=== PATIENT | female | born 1940 ===

== ENCOUNTER → 2018-02-09 12:19 | Outpatient (CLI) | payer MEDICARE, OTHER, SELFPAY ==
--- NOTE | 2018-02-08 | BRBX_PTH ---
PATIENT: DE CARD LOC: [facility] U#:[id number] AGE/SX: 85/F ROOM: RE02/09/[address]: Dr. Jean-Claude Raymond MD : 1940 BED: DIS: SPEC #: [id number] RECD: 02/09/18 12:04 STATUS: YASMEEN VINH #: [id number] MIKAL: 02/08/18 00:[address]: Jean-Claude Raymond DEPT: SURGICAL PATHOLOGY RECD BY: Jean-Claude Snow Tissues: A - Breast, NOS B - Lymph node, NOS Procedures: Surgery Specimen Level IV HEADER OPERATION: Right breast ultrasound-guided biopsy PRE-OP DIAGNOSIS: Right breast tissue, right lymph node TISSUE SUBMITTED: A ? Breast tissue biopsy, B ? Lymph node biopsy ISCHEMIC TIME: <1 minute MICROSCOPIC DIAGNOSIS A. 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 9 mm B. Lymph node, core biopsy: Invasive mammary carcinoma with focal papillary features. AM:antwan 02/12/18 COMMENT A & B. ER/OK/Ajm9blo studies are being performed on sections of tumor and the results from this study will be reported separately ([id number]). B. Lymphoid tissue is not present in the biopsy. Clinical correlation is suggested. Case has been reviewed in consultation with Dr. Grace who concurs with the above diagnosis. IDC:SJ MICROSCOPIC DESCRIPTION Slides are reviewed. GROSS DESCRIPTION A - Received is one container labeled with the patient's name and not further designated. The specimen consists of a single elongated fragment of thomason-yellow soft tissue measuring 1 cm in length and 0.1 cm in average diameter. The specimen is totally submitted in one cassette. B - Received in fixative is one container labeled with the patient's name and designated #2. The specimen consists of multiple irregular fragments of thomason-yellow soft tissue that in aggregate measure 1.2 x 0.2 x 0.1 cm. The specimen is totally submitted in one cassette. / AM:antwan 02/09/18 TC:0 CPT: 86992 x2
--- NOTE | 2018-02-08 | IMM_PTH ---
PATIENT: DE CARD LOC: [facility] U#:[id number] AGE/SX: 85/F ROOM: RE02/09/[address]: Dr. Jean-Claude Raymond MD : 1940 BED: DIS: SPEC #: [id number] RECD: 02/12/18 12:46 STATUS: YASMEEN REThanh #: [id number] MIKAL: 02/08/18 00:[address]: Jean-Claude Raymond DEPT: IMMUNOHISTOCHEMISTRY RECD BY: Lenka Barron Tissues: A - Right breast, NOS B - Axillary lymph node, NOS Procedures: CALPONIN-1 (add) CK19 (add) CK5-6 (add) CK8 (add) E-CAD (add) HER2 YOCASTA (add) KI-67 (add) MAMM (add) P53 (add) KS (add) GATA3 (add) P40 (add) ER (initial) PHYSICIAN & INSTITUTION [place] [id number] SPECIMEN INFORMATION: Tissue Source: A ? Right breast biopsy, B ? Lymph node biopsy Clinical Info: Right breast tissue, right lymph node Specimen Number: [id number] A & B CPT code: 39044 x2, 33955 x8, 09443 x5 METHODOLOGY: Deparaffinized sections of prefer/formalin-fixed tissue or PAP/DQ stained slides are incubated with monoclonal/polyclonal antibodies/oligonucleotide probes. Localization is made via biotin free immunoperoxidase method. Appropriate controls are performed and reacted as expected. Results on target cell population are indicated in the following table: RESULTS: ANTIBODY / CLONE RESULT Block A P53 (DO-7) negative Ki-67 (30-9) positive, low CK8 (89sylyN41) positive CK5-6 (D5 & 1684) negative Calponin-1 (SC670D) negative P40 (BC28) negative E-Cad (ECH-6) positive MORPHOMETRIC ANALYSIS ER (clone 6F11) >95% KS (clone 16/1E2) >95% Her-2Neu (clone CB11) 0-1+ Block B ER (6F11) positive KS (1E2) positive GATA3 (L50-823) positive CK19 (A53-B/A2.26) positive Mammaglobin (31A5) positive The prognostic test for HER2 is performed on formalin-fixed paraffin embedded tissue. A 3+ (positive) staining pattern is defined as intense, homogeneous, complete, circumferential membranous staining in >10% of contiguous tumor cells. A similar weak (2+) staining pattern is interpreted as equivocal. ALYSHA follow-up testing is recommended for all equivocal cases. Positivity/negativity for ER/KS is reported if > or < 1% of the tumor cells are immuno- reactive, respectively. The ASCO/CAP criteria is used for scoring. Reference: Journal of Clinical Oncology, 2013; 31:5128-4812 & 2010; 16:4742-2829. Duration of fixation: __ Hrs; Sample Adequate: Yes. These assays have not been validated on decalcified tissues. Results should be interpreted with caution given the likelihood of false negativity on decalcified specimens. These tests were developed and their performance characteristics determined by [facility]. They may not have been cleared or approved by the [place]. Food and Drug Administration. The FDA has determined that such clearance or approval is not necessary. INTERPRETATION: A. Right breast tissue, ultrasound-guided biopsy: Invasive ductal carcinoma, nuclear grade 2/3. Positive for estrogen receptors (favorable prognostic indicator). Positive for progesterone receptors (favorable prognostic indicator). Negative for overexpression of JPX5ims. B. Right lymph node, biopsy: Metastatic carcinoma of breast origin. AM:antwan 02/13/18
== END ==
PROVIDERS: Visit Provider Surgery
DX: C50.911 Malignant neoplasm of unspecified site of right female breast (principal); C77.9 Secondary and unspecified malignant neoplasm of lymph node, unspecified; Z17.0 Estrogen receptor positive status [ER+]
CPT/HCPCS: 88305; 88341; 88342